=== PATIENT | female | born 1990 | race African-American/Black ===

== ENCOUNTER 2021-02-17 15:34 | Emergency (ER) | payer OTHER ==
[~2021-02-17] VITALS: Ht 167.6 cm; Wt 100.0 kg
[2021-02-17] MEDS ORDERED: IBUPROFEN 800 MG TABLET PO ONE (17:00)
[2021-02-17 20:00] VITALS: BP 114/76
== END 2021-02-17 20:25 | disposition home or self-care (01) ==
LOC: EMS 15:38
DX: S30.0XXA Contusion of lower back and pelvis, initial encounter (principal); W17.89XA Other fall from one level to another, initial encounter; Y93.39 Activity, other involving climbing, rappelling and jumping off; Y92.89 Other specified places as the place of occurrence of the external cause; Y99.8 Other external cause status
CPT/HCPCS: 72100; 72220; 99284; Z7502; Z7610